=== PATIENT | male | born 1940 | race Caucasian/White ===

== ENCOUNTER → 2017-01-01 | Outpatient (CLI) | payer OTHER, MEDICARE ==
[~2017-01-01] MED LIST: ASCO1CAP3 PO; ASPI81TA28 PO; CALC500T72 PO; CALC600T9 PO; ENAL5TAB83 PO; GLC/500 PO; LEVO50TA6 PO; MULT-513 PO; NADO80TA PO; PRAV20TA PO; PRED10TA PO; PRT/20 PO; PYRI60TA2 PO; RXC5 PO; TAMS0.4C38 PO; TOLT2TAB9 PO; TRAM-10 PO
--- NOTE | 2017-01-01 15:27 | DIAGNOSTIC IMAGING REPORT ---
CHEST 2 VIEWS ROUTINE CLINICAL HISTORY: PRE OP, SEND TO [facility] preoperative evaluation COMPARISON STUDY: No previous studies for comparison. FINDINGS: Calcified pleural plaques right hemithorax. Lungs otherwise appear clear. Diaphragms are smooth. Degenerative changes thoracic spine. IMPRESSION: No acute process. Chronic changes as noted. Electronically signed by: Tayo Rios M.D. 01/01/2017 3:26 PM Dictated Date/Time: 01/01/2017 3:25 PM
== END | disposition home or self-care (01) ==
LOC: C.CPL 14:48
PROVIDERS: ATTEND Orthopaedic Surgery Orthopaedic Surgery of the Spine
DX: Z01.812 Encounter for preprocedural laboratory examination (principal); M48.06 Spinal stenosis, lumbar region

== ENCOUNTER → 2017-01-01 | Outpatient (CLI) | payer OTHER, MEDICARE ==
[~2017-01-01] VITALS: Ht 170.2 cm; Wt 77.3 kg
[~2017-01-01] MED LIST changes: +CEFAZOLIN 1000MG/55 ML D5W IV SCH; +LACTATED RINGER'S 1000ML 1,000 ML IV SCH
[2017-01-01 15:39] LABS: BASO % 0.3 %; BASO ABS # 0.02 K/uL (0-0.2); COMPLETE YES; EOS % 0.2 %; HEMATOCRIT 38.7 % (42-52); IG% 0.6 %; LYMPH % 8.7 %; LYMPH ABS # 0.58 K/uL (1.2-3.4); MEAN CELL VOLUME 90.4 fL (80-100); MEAN CORPUSCULAR HEMOGLOBIN 29.2 pg (25-34); MEAN CORPUSCULAR HGB CONC 32.3 g/dl (32-36); MEAN PLATELET VOLUME 9.3 fL (7.4-10.4); MONO % 2.4 %; NEUT % 87.8 %; PLATELET COUNT 201 K/uL (130-400); RED BLOOD COUNT 4.28 M/uL (4.7-6.1); WHITE BLOOD COUNT 6.63 K/uL (4.8-10.8)
[2017-01-01 15:43] LABS: URINE APPEARANCE CLOUDY (CLEAR); URINE BILIRUBIN NEG (NEG); URINE COLOR YELLOW; URINE NITRITE NEG (NEG); URINE PH 7.5 (4.5-7.5); URINE SPECIFIC GRAVITY 1.019 (1.000-1.030); UROBILINOGEN NEG (NEG)
[2017-01-01 15:47] LABS: MANUAL MICROSCOPIC REQUIRED? NO; REVIEW REQ? NO
[2017-01-01 15:48] LABS: SULFASALICYLIC ACID POS (NEG)
[2017-01-01 16:30] LABS: BLOOD UREA NITROGEN 15 mg/dl (7-18); BUN/CREATININE RATIO 22.1 (10-20); CARBON DIOXIDE 31 mmol/L (21-32); CHLORIDE 106 mmol/L (98-107); CREATININE 0.66 mg/dl (0.60-1.40); GLUCOSE 161 mg/dl (70-99); POTASSIUM 4.5 mmol/L (3.5-5.1); SODIUM 140 mmol/L (136-145)
[2017-01-04 13:39] VITALS: Ht 170.2 cm; Wt 77.3 kg
== END | disposition home or self-care (01) ==
LOC: C.LAB 08:00 → EDSTATUS 01-08 08:20
PROVIDERS: ATTEND Orthopaedic Surgery Orthopaedic Surgery of the Spine
DX: Z01.812 Encounter for preprocedural laboratory examination (principal)

== ENCOUNTER 2017-04-01 05:19 | Inpatient (IN) | payer OTHER, MEDICARE ==
[2017-03-21 13:10] VITALS: Ht 170.2 cm; Wt 79.9 kg
--- NOTE | 2017-03-21 13:48 | PAT Medication Instructions ---
Service Date Mar 21, 2017. Current Home Medication List Ascorbic Acid (Vitamin C), 500 MG PO QAM Aspirin (Aspirin Ec), 81 MG PO QAM Calcium Carbonate-Vitamin D (Calcium + D), 1 TAB PO BID Enalapril (Vasotec), 10 MG PO BID Levothyroxine Sodium (Levothyroxine Sodium), 1 TAB PO QAM Metformin Hcl (Glucophage), 500 MG PO BID Multivitamins/Minerals (Mvi With Minerals), 1 TAB PO QPM Nadolol (Corgard), 80 MG PO HS Pantoprazole (Protonix), 20 MG PO QAM Pravastatin (Pravachol ), 40 MG PO QPM Prednisone Tab (Prednisone), 5 MG PO Q2D Pyridostigmine [place] (Mestinon), 120 MG PO QID Tamsulosin Hcl (Flomax), 0.4 MG PO NOON Tolterodine Tartrate (Tolterodine Tartrate), 2 MG PO BID Medication Instructions For Your Scheduled Surgery - Hold the following medications 48 hours prior to surgery: Metformin Hcl (Glucophage), 500 MG PO BID - Hold the following medications 24 hours prior to surgery: Enalapril (Vasotec), 10 MG PO BID - Hold the following medications the morning of surgery: Calcium Carbonate-Vitamin D (Calcium + D), 1 TAB PO BID Ascorbic Acid (Vitamin C), 500 MG PO QAM - Take the following medications the morning of surgery with a sip of water OTHERWISE NOTHING TO EAT OR DRINK AFTER MIDNIGHT: Tolterodine Tartrate (Tolterodine Tartrate), 2 MG PO BID Levothyroxine Sodium (Levothyroxine Sodium), 1 TAB PO QAM Tamsulosin Hcl (Flomax), 0.4 MG PO NOON (time permitting) Aspirin (Aspirin Ec), 81 MG PO QAM Pantoprazole (Protonix), 20 MG PO QAM Pyridostigmine [place] (Mestinon), 120 MG PO QID - Take the following medications as scheduled the night before surgery: Tolterodine Tartrate (Tolterodine Tartrate), 2 MG PO BID Calcium Carbonate-Vitamin D (Calcium + D), 1 TAB PO BID Multivitamins/Minerals (Mvi With Minerals), 1 TAB PO QPM Nadolol (Corgard), 80 MG PO HS Pravastatin (Pravachol ), 40 MG PO QPM Pyridostigmine [place] (Mestinon), 120 MG PO QID If you have any questions please call us at [phone] or [phone] or [phone]
[2017-03-21 14:49] LABS: BASO % 0.9 %; BASO ABS # 0.04 K/uL (0-0.2); COMPLETE YES; EOS % 3.9 %; HEMATOCRIT 37.4 % (42-52); IG% 0.2 %; LYMPH % 20.3 %; LYMPH ABS # 0.89 K/uL (1.2-3.4); MEAN CELL VOLUME 89.3 fL (80-100); MEAN CORPUSCULAR HEMOGLOBIN 29.1 pg (25-34); MEAN CORPUSCULAR HGB CONC 32.6 g/dl (32-36); MEAN PLATELET VOLUME 9.4 fL (7.4-10.4); MONO % 11.4 %; NEUT % 63.3 %; PLATELET COUNT 168 K/uL (130-400); RED BLOOD COUNT 4.19 M/uL (4.7-6.1); WHITE BLOOD COUNT 4.39 K/uL (4.8-10.8)
[2017-03-21 14:50] LABS: URINE APPEARANCE CLEAR (CLEAR); URINE BILIRUBIN NEG (NEG); URINE COLOR YELLOW; URINE NITRITE NEG (NEG); URINE SPECIFIC GRAVITY 1.024 (1.000-1.030); UROBILINOGEN NEG (NEG)
[2017-03-21 14:53] LABS: MANUAL MICROSCOPIC REQUIRED? NO; REVIEW REQ? NO
[2017-03-21 15:08] LABS: BUN/CREATININE RATIO 18.2 (10-20); CALCIUM 9.1 mg/dl (8.5-10.1); CREATININE 0.73 mg/dl (0.60-1.40); POTASSIUM 4.2 mmol/L (3.5-5.1)
[~2017-04-01] VITALS: Ht 170.2 cm; Wt 79.9 kg
[2017-04-01] VITALS (10 sets, daily range): BP systolic 146–185; BP diastolic 62–80; PULSE 44–53; TEMP 36.4–36.9; O2SAT 98–100
[~2017-04-01 05:19] MED LIST changes: -CALC500T72 PO; -CEFAZOLIN 1000MG/55 ML D5W IV SCH; -LACTATED RINGER'S 1000ML 1,000 ML IV SCH; -RXC5 PO; -TRAM-10 PO
[2017-04-01] MEDS ORDERED: LACTATED RINGER'S 1000ML 1,000 ML IV SCH (06:00)
[2017-04-01] MEDS ORDERED: CEFAZOLIN 2000 MG/60 ML D5W IV SCH (06:00)
[2017-04-01] MEDS ORDERED: FENTANYL CITRATE INJ 50 MCG/1 ML 2 ML VIAL ONE ×3 (06:38→08:54)
[2017-04-01] MEDS ORDERED: MIDAZOLAM HCL 1 MG/ML 2ML VIAL ONE (06:38)
[2017-04-01] MEDS ORDERED: PYRIDOSTIGMINE BROMIDE 60 MG TAB PO STA (07:16)
[2017-04-01] MEDS ORDERED: BUPIVACAINE/EPINEPHRINE 0.5% MPF 1:200,000 10 ML VIAL ONE ×2 (07:17→07:18)
[2017-04-01] MEDS ORDERED: BACITRACIN 50000 UNIT VIAL ONE (07:17)
[2017-04-01] MEDS ORDERED: SODIUM CHLORIDE 0.9% PF 50 ML VIAL ONE (07:22)
--- NOTE | 2017-04-01 07:27 | History & Physical Bridge Note ---
H&P Re-Evaluation Bridge Note: I have examined the patient, reviewed the History & Physical and in the interval since the performance of the History & Physical I have noted the following changes of clinical significance: No changes noted
--- NOTE | 2017-04-01 07:28 | History and Physical ---
History & Physical Date Apr 01, 2017. Chief Complaint Back and leg pain History of Present Illness The patient is a 76 year old male with complaints of back and leg pain Additional History Hepatic Disease: No Endocrine Disorder: No Kidney Disease: No Hypertension: Yes Heart Disease: No Bleeding Tendencies: No Infectious Diseases: No Allergies Coded Allergies: No Known Drug Allergy (Verified Allergy, Unknown, NKDA, 04/01/17) Unclassified Drugs (Verified Allergy, Unknown, MINT-VOMITING, 04/01/17) Home Medications Scheduled Ascorbic Acid (Vitamin C), 500 MG PO QAM Aspirin (Aspirin Ec), 81 MG PO QAM Calcium Carbonate-Vitamin D (Calcium + D), 1 TAB PO BID Enalapril (Vasotec), 10 MG PO BID Levothyroxine Sodium (Levothyroxine Sodium), 1 TAB PO QAM Metformin Hcl (Glucophage), 500 MG PO BID Multivitamins/Minerals (Mvi With Minerals), 1 TAB PO QPM Nadolol (Corgard), 80 MG PO HS Pantoprazole (Protonix), 20 MG PO QAM Pravastatin (Pravachol ), 40 MG PO QPM Pyridostigmine [place] (Mestinon), 120 MG PO QID Tamsulosin Hcl (Flomax), 0.4 MG PO NOON Tolterodine Tartrate (Tolterodine Tartrate), 2 MG PO BID Physical Examination Skin: warm/dry Eyes: normal inspection, EOMI, sclerae normal ENT: normal ENT inspection, pharynx normal Head: normocephalic, atraumatic Neck: supple, no adenopathy, trachea midline Respiratory/Chest: lungs clear, normal breath sounds, no respiratory distress Cardiovascular: regular rate, rhythm, no edema, no murmur Abdomen / GI: normal bowel sounds, non tender Back: normal inspection Extremities: normal inspection, normal range of motion Neurologic/Psych: no motor/sensory deficits, alert, normal reflexes, oriented x 3 Diagnosis Lumbar spinal stenosis Plan of Treatment Lumbar decompression fusion L2 to L4
[2017-04-01] MEDS ORDERED: ONDANSETRON INJ 2 MG/ML 2 ML VIAL IV PRN ×2 (07:30→09:45)
[2017-04-01] MEDS ORDERED: NALOXONE HCL 0.4 MG/1 ML VIAL/CARP IV PRN ×3 (07:30→09:45)
[2017-04-01] MEDS ORDERED: ATROPINE SULFATE 0.1 MG/ML 5ML SYR IV PRN (07:30)
[2017-04-01] MEDS ORDERED: PHENYLEPHRINE 100MCG/ML 5ML SYR IV PRN (07:30)
[2017-04-01] MEDS ORDERED: MEPERIDINE HCL 25 MG/ML CARP IV PRN (07:30)
[2017-04-01] MEDS ORDERED: FLUMAZENIL 0.1 MG/1 ML 10 ML VIAL IV PRN (07:30)
[2017-04-01] MEDS ORDERED: FENTANYL CITRATE INJ 50 MCG/1 ML 2 ML VIAL IV PRN (07:30)
[2017-04-01] MEDS ORDERED: HYDROmorphone INJ 2 MG/ML SYR/VIAL IV PRN (07:30)
[2017-04-01] MEDS ORDERED: LABETALOL HCL IV 5 MG/ML 20ML IV PRN (07:30)
[2017-04-01] MEDS ORDERED: EpHEDrine SULFATE INJ 50 MG/ML AMP IV PRN (07:30)
[2017-04-01] MEDS ORDERED: HYDROmorphone INJ 2 MG/ML SYR/VIAL ONE ×2 (08:00→09:39)
[2017-04-01] MEDS ORDERED: ALBUMIN HUMAN 5% 12.5 GM/250 ML VIAL IV ONE (09:15)
[2017-04-01] MEDS ORDERED: FLOSEAL HEMOSTATIC MATRIX 10ML TOP ONE (09:31)
[2017-04-01] MEDS ORDERED: SODIUM CHLORIDE 0.9% 1000ML 1,000 ML IV SCH (09:33)
[2017-04-01] MEDS ORDERED: ONDANSETRON INJ 2 MG/ML 2 ML VIAL ONE (09:40)
[2017-04-01] MEDS ORDERED: DEXAMETHASONE SOD INJ 4 MG/ML VIAL ONE (09:40)
[2017-04-01] MEDS ORDERED: GLYCOPYRROLATE INJ 0.2 MG/ML VIAL ONE (09:40)
[2017-04-01] MEDS ORDERED: EpHEDrine SULFATE 50MG/5ML SYR ONE (09:40)
[2017-04-01] MEDS ORDERED: NEOSTIGMINE METHYLSULFATE 1 MG/ML 10ML VIAL ONE (09:40)
[2017-04-01] MEDS ORDERED: PROPOFOL IV EMULSION 10 MG/ML 20 ML VIAL IV ONE (09:40)
[2017-04-01] MEDS ORDERED: ROCURONIUM BROMIDE 10 MG/ML 5 ML VIAL ONE (09:40)
[2017-04-01] MEDS ORDERED: LIDOCAINE HCL 2% 2 ML VIAL (20MG/ML) ONE (09:40)
[2017-04-01] MEDS ORDERED: ACETAMINOPHEN IV 100 ML IV PRN (09:45)
[2017-04-01] MEDS ORDERED: LORAZEPAM INJ 0.5 MG in SYRINGE 0 ML IV PRN (09:45)
[2017-04-01] MEDS ORDERED: MAGNESIUM HYDROXIDE SUSP 30 ML UDC PO PRN (09:45)
[2017-04-01] MEDS ORDERED: METOCLOPRAMIDE HCL INJ 5 MG/ML 2 ML VIAL IV PRN (09:45)
[2017-04-01] MEDS ORDERED: FAMOTIDINE 20 MG TAB PO PRN (09:45)
[2017-04-01] MEDS ORDERED: ACETAMINOPHEN 500 MG TAB PO PRN (09:45)
[2017-04-01] MEDS ORDERED: ALUMINUM/MAGNESIUM SUSP 30 ML UDC PO PRN (09:45)
[2017-04-01] MEDS ORDERED: LORAZEPAM 0.5 MG TAB PO PRN (09:45)
[2017-04-01] MEDS ORDERED: DC PCA PRN (09:45)
[2017-04-01] MEDS ORDERED: BISACODYL 10 MG SUPP PR PRN (09:45)
[2017-04-01] MEDS ORDERED: DO NOT ADMINISTER FLU VACCINE PRN ×3 (09:45)
[2017-04-01] MEDS ORDERED: PROMETHAZINE HCL INJ 12.5 MG in SODIUM CHLORIDE 0.9% 50ML 50 ML IV PRN (09:45)
[2017-04-01] MEDS ORDERED: hydrOXYzine HCL 25 MG TAB PO PRN (09:45)
[2017-04-01] MEDS ORDERED: SOD PHOSPHATE/SOD BIPHOSPHATE ENEMA 132 ML BTL PR PRN (09:45)
[2017-04-01] MEDS ORDERED: DO NOT ADMINISTER PNEUMOCOCCAL VACCINE PRN ×2 (09:45)
--- NOTE | 2017-04-01 09:48 | [facility] Operative Report ---
Operative Report Operative Date Apr 01, 2017. Pre-Operative Diagnosis Lumbar Spinal Stenosis Post-Operative Diagnosis Lumbar Spinal Stenosis Procedure(s) Performed #1 removal of posterior inch rotation L4 5. #2 expiration of fusion L4 5. #3 lumbar decompression medial facetectomies foraminotomies L2 3 L3 4. #4 posterior spinal fusion L2 3 L3 4. #5 placement of posterior segmental instrumentation L2 to L5. 6 interbody fusion L3 4. #7 placement peek cage left by 22 mm at L3 4. #8 placement of locally harvested morcellized autograft in the posterior lateral gutters. #9 placement of infuse calm sponge, mask graft in the posterior lateral gutters Felicia bone graft in the interbody space. Surgeon Leona Sanitation Inspector Surgeon(s) Mehreen Garcia PA-C Estimated Blood Loss 700cc Findings Severe spinal stenosis Specimens A: Explanted Lumbar Hardware Description of Procedure Patient was met with preoperatively case discussed all questions are dressed with a point patient was taken back to the operative suite and after undergoing successful general intubation placed in a prone position on the Georgi table on top Jeremie frame. All bony promises well-padded eyes inspected to ensure no external pressure placed upon them. This point the lumbar spine was prepped and draped nostril fashion. Sharp dissection with the assistance of Bovie cautery performed onto an exposing the lamina and transverse processes of L2 L3 L4 instrumentation L4 5 level bilaterally. Then proceeded remove the hardware bilaterally explored the fusion mass noting it to be intact. Then performed a complete laminectomy of L3 into addressing severe lateral recess foraminal stenosis. Pedicle screws were then placed in L2-L3 L4-L5 bilaterally with assistance of fluoroscopy in the appropriately sized raza placed. Through a transforaminal approach on the right complete discectomy of L34 was performed and plate created to subcortical bleeding bone and a limb by 20 mm peek cage filled with Felicia bone graft tapped in position. The rods and locked and final position bilaterally. Transverse processes of L2 L3 L4 burred to subcortical bleeding bone. Infuse calm sponge mask graft locally harvested morcellized autograft placed in the posterior gutters. A 15 round AMIE drain inserted. Incision then closed with 1 Vicryl in the fascia 2-0 Vicryl subcutaneously for Monocryl for final skin closure. Steri-Strips and sterile dressing placed. Patient awakened taken to PACU stable condition. Please note Mehreen [place] present throughout the entire procedure involved in patient positioning complex portions of the procedure and final skin closure. I attest to the content of the Intraoperative Record and any orders documented therein. Any exceptions are noted below.
--- NOTE | 2017-04-01 09:51 | DIAGNOSTIC IMAGING REPORT ---
LUMBAR SPINE 2 OR 3 VIEW HISTORY: 76 years-old Male L2-L4 LAMI/DECOMPRESSION/FUSION/INTERBODY COMPARISON: Lumbar spine spot fluoroscopic images 10/07/2013 TECHNIQUE: Frontal and lateral spot fluoroscopic images of the lumbar spine were obtained utilizing 16.9 seconds of fluoroscopy time. A total of 2 images were submitted. FINDINGS/IMPRESSION: Posterior decompression with interbody raza and screw hardware seen extending from L2-L5. Disc spacers are seen at the L3-L4 and L4-L5 levels. Hardware appears intact and alignment is satisfactory. Please see operative report for further details. The above report was generated using voice recognition software. It may contain grammatical, syntax or spelling errors. Electronically signed by: Malachi Constantino M.D. 04/01/2017 9:50 AM Dictated Date/Time: 04/01/2017 9:47 AM
[2017-04-01] MEDS: HYDROmorphone HCL 0.5MG/ML 50 ML CASSETTE IV PRN ×4 (10:06→22:57)
--- NOTE | 2017-04-01 10:37 | Anesthesiology Progress Note ---
Anesthesia Post Op Note Date & Time Apr 01, 2017 at 10:36 Vital Signs Pain Intensity: 0 Vital Signs Past 12 Hours Date Time Temp Pulse Resp B/P (MAP) Pulse Ox O2 Delivery O2 Flow Rate FiO2 04/01/17 10:20 50 16 167/75 99 Nasal Cannula 4 04/01/17 10:10 52 16 171/66 99 Mask 10 04/01/17 10:00 59 16 170/67 98 Mask 10 04/01/17 09:52 36.4 74 16 174/71 98 Mask 10 04/01/17 06:07 36.6 49 20 185/66 99 Room Air Notes Mental Status: alert / awake / arousable, participated in evaluation Pt Amnestic to Procedure: Yes Nausea / Vomiting: adequately controlled Pain: adequately controlled Airway Patency, RR, SpO2: stable & adequate BP & HR: stable & adequate Hydration State: stable & adequate Anesthetic Complications: no major complications apparent The patient did well. He is awake and comfortable in the PACU. I spoke to Giuliana Carlos about the patient's myasthenia gravis. She will follow the patient on the floor.
[2017-04-01] MEDS: SODIUM CHLORIDE 0.9% 1000ML 1,000 ML IV SCH ×3 (11:19→22:44)
[2017-04-01] MEDS ORDERED: ENALAPRIL MALEATE 10 MG TAB PO ONE (11:45)
[2017-04-01] MEDS ORDERED: GLUCOSE 10 TABS/TUBE PO PRN (12:15)
[2017-04-01] MEDS ORDERED: DEXTROSE 50% 50 ML SYR IV PRN (12:15)
[2017-04-01] MEDS ORDERED: GLUCAGON FOR INJ 1 MG VIAL SQ PRN (12:15)
[2017-04-01] MEDS ORDERED: GLUCOSE 40% GEL 15 GM TUBE PO PRN (12:15)
--- NOTE | 2017-04-01 12:36 | Medical Consult ---
Consultation Date of Consultation: Apr 01, 2017. Attending Physician: Jamal Delgadillo D.O. Reason for Consultation: Post Op Medical Management History of Present Illness 76 year old male who is s/p L2-4 decompression / fusion today by Dr. Delgadillo. Patient has been having increasing back pain with radiation into the right hip and thigh. He failed outpatient conservative measures and therefore presented for the planned procedure today. Post operatively the patient is doing well. He reports his pain is well controlled. He denies numbness or tingling to the BLLE. No chest pain or shortness of breath. He denies headache and blurred vision. No abdominal pain or nausea. Past Medical/Surgical History Medical Problems: (1) BPH (benign prostatic hyperplasia) Status: Chronic (2) Dilated aortic root Permanent Comment: 3.9cm on echo 12/2016 Status: Chronic (3) DM (diabetes mellitus) Status: Chronic (4) GERD (gastroesophageal reflux disease) Status: Chronic (5) HLD (hyperlipidemia) Status: Chronic (6) HTN (hypertension) Status: Chronic (7) Hypothyroidism Status: Chronic (8) Myasthenia gravis Status: Chronic Surgical Problems: (1) History of back surgery Status: Chronic Social History Smoking Status: Former Smoker Alcohol Use: none Allergies Coded Allergies: No Known Drug Allergy (Verified Allergy, Unknown, NKDA, 04/01/17) Unclassified Drugs (Verified Allergy, Unknown, MINT-VOMITING, 04/01/17) Home Medications Vitamin C (Ascorbic Acid) 500 Mg Cap 500 Mg PO QAM Mestinon (Pyridostigmine [place]) 60 Mg Tab 120 Mg PO QID Calcium + D (Calcium Carbonate-Vitamin D) 1 Tab Tab 1 Tab PO BID Protonix (Pantoprazole Sodium) 20 Mg Tab 20 Mg PO QAM Tolterodine Tartrate 2 Mg Tab 2 Mg PO BID Levothyroxine Sodium 50 Mcg Tab 1 Tab PO QAM 90 Days Flomax (Tamsulosin Hcl) 0.4 Mg Cap 0.4 Mg PO NOON Corgard (Nadolol) 80 Mg Tab 80 Mg PO HS Vasotec (Enalapril Maleate) 5 Mg Tab 10 Mg PO BID Mvi With Minerals (Multivitamins/Minerals) Tab 1 Tab PO QPM Glucophage (Metformin Hcl) 500 Mg Tab 500 Mg PO BID Aspirin Ec (Aspirin) 81 Mg Tab 81 Mg PO QAM Pravachol (Pravastatin Sodium) 20 Mg Tab 40 Mg PO QPM Current Inpatient Medications Current Inpatient Medications Medications (Trade) Dose Ordered Sig/Get Route Start Time Stop Time Status Last Admin Dose Admin Cefazolin Sodium 60 ml @ 100 mls/hr PREOP IV 04/01/17 06:00 04/01/17 15:59 04/01/17 07:34 100 MLS/HR Lactated Ringer's 1,000 ml @ 15 mls/hr Q24H IV 04/01/17 06:00 04/02/17 05:59 04/01/17 06:25 15 MLS/HR Hydromorphone HCl (Dilaudid Inj) 0.5 mg Q5M PRN IV 04/01/17 07:30 04/01/17 13:00 Fentanyl Citrate (Fentanyl Inj) 25 mcg Q5M PRN IV 04/01/17 07:30 04/01/17 13:00 Naloxone HCl (Narcan Inj) 0.2 mg Q2M PRN IV 04/01/17 07:30 04/01/17 13:00 Meperidine HCl (Demerol Inj) 12.5 mg Q5M PRN IV 04/01/17 07:30 04/01/17 13:00 Ondansetron HCl (Zofran Inj) 4 mg ONE PRN IV 04/01/17 07:30 04/01/17 13:00 Flumazenil (Romazicon Inj) 0.2 mg Q2M PRN IV 04/01/17 07:30 04/01/17 13:00 Labetalol HCl (Normodyne IV) 5 mg Q5M PRN IV 04/01/17 07:30 04/01/17 13:00 Ephedrine Sulfate (EpHEDrine SULFATE INJ) 5 mg Q5M PRN IV 04/01/17 07:30 04/01/17 13:00 Atropine Sulfate (Atropine Sulfate 0.1MG/Ml Inj) 0.5 mg Q1M PRN IV 04/01/17 07:30 04/01/17 13:00 Phenylephrine HCl (Fuentes-Synephrine 500MCG/5ML Syr) 100 mcg Q5M PRN IV 04/01/17 07:30 04/01/17 13:00 Dexamethasone Sodium Phosphate 6 mg/Syringe 1.5 ml @ 1 mls/min Q8H IV 04/01/17 14:00 04/02/17 06:02 Promethazine HCl 12.5 mg/Sodium Chloride 50.5 ml @ 202 mls/hr Q6H PRN IV 04/01/17 09:45 05/01/17 09:44 Ondansetron HCl (Zofran Inj) 4 mg Q6H PRN IV 04/01/17 09:45 05/01/17 09:44 Metoclopramide HCl (Reglan Inj) 10 mg Q6H PRN IV 04/01/17 09:45 05/01/17 09:44 Lorazepam (Ativan Tab) 0.5 mg Q8H PRN PO 04/01/17 09:45 05/01/17 09:44 Lorazepam 0.5 mg/ Syringe 0.25 ml @ 1 mls/min Q8H PRN IV 04/01/17 09:45 05/01/17 09:44 Pneumococcal Polysaccharide Vaccine 1 ea PRN PRN N/A 04/01/17 09:45 05/01/17 09:44 Influenza Virus Vacc Triv Types A&B 1 ea PRN PRN N/A 04/01/17 09:45 05/01/17 09:44 Polyethylene (Miralax Powder Packet) 17 gm Q6 PO 04/03/17 06:00 05/03/17 05:59 Bisacodyl (Dulcolax Supp) 10 mg DAILY PRN AK 04/01/17 09:45 05/01/17 09:44 Magnesium Hydroxide (Milk Of Magnesia Susp) 30 ml DAILY PRN PO 04/01/17 09:45 05/01/17 09:44 Hydromorphone HCl (Dilaudid Inj) 0.5-1mg prn moder... Q3H PRN IV 04/02/17 06:00 04/16/17 05:59 Oxycodone HCl (Roxicodone Immediate Rel Tab) 5-10mg prn moderate to sev... Q4H PRN PO 04/02/17 06:00 04/16/17 05:59 Cefazolin Sodium 2000 mg/Dextrose 60 ml @ 100 mls/hr Q8H IV 04/01/17 16:00 04/02/17 00:35 Sodium Chloride 1,000 ml @ 150 mls/hr Q6H40M IV 04/01/17 09:33 05/01/17 09:32 04/01/17 11:19 150 MLS/HR Acetaminophen (Tylenol Tab) 1,000 mg Q8H PRN PO 04/01/17 09:45 05/01/17 09:44 Acetaminophen 100 ml @ 400 mls/hr Q8H PRN IV 04/01/17 09:45 05/01/17 09:44 Naloxone HCl (Narcan Inj) 0.1 mg Q5M PRN IV 04/01/17 09:45 05/01/17 09:44 Senna/Docusate Sodium (Senokot S Tab) 2 tab HS PO 04/01/17 21:00 05/01/17 20:59 Sodium Biphosphate/ Sodium Phosphate (Fleet Enema) 132 ml ONE PRN AK 04/01/17 09:45 05/01/17 09:44 Hydroxyzine HCl (Vistaril Tab) 25 mg Q8H PRN PO 04/01/17 09:45 05/01/17 09:44 Al Hydroxide/Mg Hydroxide (Maalox Susp) 30 ml Q6H PRN PO 04/01/17 09:45 05/01/17 09:44 Famotidine (Pepcid Tab) 20 mg Q12 PRN PO 04/01/17 09:45 05/01/17 09:44 Diphenhydramine HCl (Benadryl Cap) 25 mg Q6H PRN PO 04/01/17 09:45 05/01/17 09:44 Miscellaneous Information (Discontinue HEAD GOLF PROFESSIONAL) 1 ea DIRECTED PRN N/A 04/01/17 09:45 04/02/17 06:00 Naloxone HCl (Narcan Inj) 0.1 mg Q5M PRN IV 04/01/17 09:45 04/02/17 06:00 Hydromorphone HCl (Dilaudid [place]) 25 mg PRN PRN IV 04/01/17 09:45 04/02/17 06:00 04/01/17 10:56 25 MG Sodium Chloride 1,000 ml @ 15 mls/hr Q24H IV 04/01/17 09:33 04/02/17 06:00 Aspirin (Ecotrin Tab) 81 mg QAM PO 04/02/17 09:00 05/02/17 08:59 Enalapril Maleate (Vasotec Tab) 10 mg BID PO 04/01/17 21:00 05/01/17 20:59 Levothyroxine Sodium (Synthroid Tab) 50 mcg QAM PO 04/02/17 09:00 05/02/17 08:59 Nadolol (Corgard Tab) 80 mg HS PO 04/01/17 21:00 05/01/17 20:59 Pravastatin Sodium (Pravachol Tab) 40 mg QPM PO 04/01/17 21:00 05/01/17 20:59 Tamsulosin HCl (Flomax Cap) 0.4 mg DAILY PO 04/02/17 09:00 05/02/17 08:59 Tolterodine Tartrate (Detrol Tab) 2 mg BID PO 04/01/17 21:00 05/01/17 20:59 Pantoprazole Sodium (Protonix Tab) 40 mg QAM PO 04/02/17 09:00 05/02/17 08:59 Pyridostigmine [place] (Mestinon Tab) 120 mg QID@0300,0900,1500,2100 PO 04/01/17 15:00 05/01/17 14:59 Insulin Aspart (novoLOG ASPART) SLIDING SCALE If C... ACHS SC 04/01/17 17:15 05/01/17 17:14 UNV Glucose (Glucose 40% Gel) 15-30 GRAMS 15 GRAMS... UD PRN PO 04/01/17 12:15 05/01/17 12:14 UNV Glucose (Glucose Chew Tab) 4-8 Tablets 4 Tabl... UD PRN PO 04/01/17 12:15 05/01/17 12:14 UNV Dextrose (Dextrose 50% 50ML Syringe) 25-50ML OF 50% DW IV FOR... UD PRN IV 04/01/17 12:15 05/01/17 12:14 UNV Glucagon (Glucagon Inj) 1 mg UD PRN SQ 04/01/17 12:15 05/01/17 12:14 UNV Insulin Glargine (Lantus Solostar Pen) 5 units HS SC 04/01/17 21:00 05/01/17 20:59 UNV Review of Systems ROS per HPI, all other systems reviewed and negative Physical Exam Date Time Temp Pulse Resp B/P (MAP) Pulse Ox O2 Delivery O2 Flow Rate FiO2 04/01/17 12:00 48 16 157/65 (95) 100 Nasal Cannula 2.0 04/01/17 11:37 36.9 46 16 151/66 (94) 100 Nasal Cannula 4.0 04/01/17 11:00 36.4 44 18 176/80 (112) 100 Nasal Cannula 4.0 04/01/17 11:00 100 Nasal Cannula 4.0 04/01/17 11:00 100 Nasal Cannula 4.0 04/01/17 10:40 36.2 46 16 172/60 100 Nasal Cannula 4 04/01/17 10:30 36.2 47 16 170/64 100 Nasal Cannula 4 04/01/17 10:20 50 16 167/75 99 Nasal Cannula 4 04/01/17 10:10 52 16 171/66 99 Mask 10 04/01/17 10:00 59 16 170/67 98 Mask 10 04/01/17 09:52 36.4 74 16 174/71 98 Mask 10 04/01/17 06:07 36.6 49 20 185/66 99 Room Air General Appearance: no apparent distress Head: normocephalic Eyes: normal inspection ENT: hearing grossly normal Neck: supple, no JVD Respiratory/Chest: lungs clear, normal breath sounds, no respiratory distress Cardiovascular: regular rate, rhythm, no edema, normal peripheral pulses Abdomen/GI: normal bowel sounds, non tender, soft, + distended Back: + pertinent finding (s/p back surgery, drain in place draining bloody drainage, pedal pushes and pulls strong BL) Extremities/Musculoskelatal: normal inspection, no calf tenderness Neurologic/Psych: no motor/sensory deficits, alert, normal mood/affect, oriented x 3 Skin: normal color, warm/dry Laboratory Results Last 24 Hours Test 04/01/17 06:04 04/01/17 10:04 04/01/17 12:09 Bedside Glucose 147 mg/dl 159 mg/dl 189 mg/dl Assessment & Plan S/P L2-4 DECOMPRESSION FUSION - POD#0 - activity and wound care orders as per ortho - pain control with bowel regimen - PT/OT - monitor H/H for acute blood loss anemia and transfuse blood products PRN - EBL 700ml HTN - BP mildly elevated - patient did not take AM Enalapril so will give AM dose now and re-evaluate, provide PRN hydralazine if needed - also on Nadolol, noted mildly bradycardia which seems to be chronic per review of old records DM - controlled on Metformin - will utilize Lantus / Novolog while hospitalized MYASTHENIA GRAVIS - stable - continue pyridostigmine HYPOTHYROIDISM - continue levothyroxine HLD - continue statin GERD - continue PPI BPH - continue tamsulosin DVT PROPHYLAXIS - deferred to ortho Thank you for this consultation. We will follow the patient with you during their hospital stay. You can reach a member of the [facility]ist Team 18/03 via pager @ . Attending Addendum: Agree with the above Consultation H&P; please refer to above for more details. Patient is a 76 yo male who underwent scheduled lumbar decompression surgery today for spinal stenosis that was causing his pain in his back and leg and affecting his daily living. He denies any complaints at the time and states he is still numb from surgery. Denies any CP or SOB. Cardiac: RR, S1 and S2 auscultated Resp: CTA B/L GI: soft, NT, ND, +BS Postoperative: s/p lumbar decompression/fusion surgery -pain control, DVT prophylaxis, activity as per primary team DM Type II: -hold oral anti-glycemic meds -place on lantus + correction scale insulin -monitor closely as patient is on steroids x3 doses which will impact BSGs
[2017-04-01] MEDS: DEXAMETHASONE INJ 6 MG in SYRINGE 0 ML IV SCH ×2 (13:58→22:44)
[2017-04-01] MEDS: PYRIDOSTIGMINE BROMIDE 60 MG TAB PO SCH ×2 (14:34→21:18)
[2017-04-01] MEDS: CEFAZOLIN IV 2,000 MG in DEXTROSE 5% 50ML 50 ML IV SCH ×2 (15:44→23:27)
[2017-04-01] MEDS ORDERED: PYRIDOSTIGMINE BROMIDE 60 MG TAB PO SCH (17:00)
[2017-04-01] MEDS: INSULIN ASPART 100 UNITS/ML 3 ML PEN SC SCH ×2 (18:30→21:15)
[2017-04-01] MEDS: ENALAPRIL MALEATE 5 MG TAB PO SCH (21:16)
[2017-04-01] MEDS: INSULIN GLARGINE SOLOSTAR 100 UNITS/ML 3 ML PEN SC SCH (21:16)
[2017-04-01] MEDS: TOLTERODINE TARTRATE 2 MG TAB PO SCH (21:17)
[2017-04-01] MEDS: NADOLOL 40 MG TAB PO SCH (21:18)
[2017-04-01] MEDS: DOCUSATE SODIUM/SENNA 50/8.6MG TAB PO SCH (21:19)
[2017-04-01] MEDS: PRAVASTATIN SOD 20 MG TAB PO SCH (21:19)
[2017-04-02] VITALS (8 sets, daily range): BP systolic 146–178; BP diastolic 51–70; PULSE 50–58; TEMP 36.6–36.8; O2SAT 92–100
[2017-04-02] MEDS: PYRIDOSTIGMINE BROMIDE 60 MG TAB PO SCH ×4 (03:30→21:02)
[2017-04-02] MEDS ORDERED: NURSING VERBAL MED ORDER ONE ×2 (05:30→15:45)
[2017-04-02] MEDS: DEXAMETHASONE INJ 6 MG in SYRINGE 0 ML IV SCH (05:44)
[2017-04-02] MEDS ORDERED: OXYCODONE HCL IR 5 MG TAB (IMMEDIATE RELEASE) PO PRN (06:00)
[2017-04-02] MEDS ORDERED: HYDROmorphone INJ 0.5 MG/0.5 ML SYR IV PRN (06:00)
[2017-04-02 06:34] LABS: HEMATOCRIT 25.2 % (42-52); IG% 0.4 %; LYMPH % 6.2 %; LYMPH ABS # 0.56 K/uL (1.2-3.4); MEAN CELL VOLUME 87.8 fL (80-100); MEAN CORPUSCULAR HGB CONC 34.1 g/dl (32-36); MEAN PLATELET VOLUME 9.7 fL (7.4-10.4); NEUT % 86.4 %; PLATELET COUNT 127 K/uL (130-400); RED BLOOD COUNT 2.87 M/uL (4.7-6.1); WHITE BLOOD COUNT 8.98 K/uL (4.8-10.8)
[2017-04-02 07:03] LABS: BUN/CREATININE RATIO 13.5 (10-20); CREATININE 0.65 mg/dl (0.60-1.40); POTASSIUM 3.9 mmol/L (3.5-5.1)
[2017-04-02 07:06] LABS: COMPLETE YES
[2017-04-02] MEDS: TOLTERODINE TARTRATE 2 MG TAB PO SCH ×2 (08:31→21:02)
[2017-04-02] MEDS: ASPIRIN 81 MG ECTAB PO SCH (08:32)
[2017-04-02] MEDS: TAMSULOSIN HCL 0.4 MG CAP PO SCH (08:32)
[2017-04-02] MEDS: PANTOprazole SOD 40 MG TAB PO SCH (08:32)
[2017-04-02] MEDS: ENALAPRIL MALEATE 5 MG TAB PO SCH ×2 (08:33→21:03)
[2017-04-02] MEDS: INSULIN ASPART 100 UNITS/ML 3 ML PEN SC SCH ×4 (08:41→21:06)
[2017-04-02] MEDS ORDERED: LEVOTHYROXINE 50 MCG TAB PO SCH (09:00)
[2017-04-02] MEDS ORDERED: RXC5 PO (09:41)
--- NOTE | 2017-04-02 09:42 | Discharge Instructions ---
Discharge Instructions Date of Service Apr 02, 2017. Admission Reason for Admission: Lumbar Spinal Stenosis Discharge Discharge Diagnosis / Problem: lumbar stenosis Discharge Goals Goal(s): Improve function Activity Recommendations Activity Limitations: per Instructions/Follow-up section . Instructions / Follow-Up Instructions / Follow-Up ACTIVITY RECOMMENDATIONS: SELF CARE INSTRUCTIONS AFTER THORACIC/LUMBAR FUSIONS 1. You may walk to your tolerance. It is good exercise for your legs and back. Expect some back and intermittent leg aches and pains. 2. You may perform "counter-top" level activities (make a sandwich, inez with a project, etc.). 3. No bending or lifting of more than 10 pounds or back twisting of any nature (roll like a log when turning in bed). 4. You may ride in a car for 20-30 minutes at a time. No driving until after your first visit with your doctor. 5. Frequent changes of position and restricting sitting to 30 minutes at a time will help limit the amount of back spasms and stiffness you may experience. 6. You may discontinue the use of ambulatory aids (cane, crutches, etc.) once your strength and confidence allow. 7. You may production mechanic tin cans the shower and let water strike your incision when you arrive home at least once daily. Do not take a tub bath, sit in a hot tub or go into a swimming pool until after your first recheck in the office. SPECIAL CARE INSTRUCTIONS: VERY IMPORTANT TO READ AND REVIEW A. Your surgical incision has been closed with a cosmetic suture under the skin that will dissolve in about 6 weeks. In 14 days, you can use a pair of clean scissors and cut the suture that is left outside of the skin at the ends of your incision. 1. The small skin tapes can be removed 7 days after surgery if they have not fallen off by that point. 2. You may keep the wound open to air as much as possible to promote healing after post-op day number 5 unless told otherwise by your doctor. 3. If you think the wound looks like it is becoming infected (redness or worsening drainage) and/or you are experiencing fever, chill or worsening back pain and muscle spasms, contact the office so that we may evaluate you as soon as possible. B. Complications are uncommon, but please contact us if you have any signs or symptoms of: 1. wound infection (fever higher than 102.5 degrees F, redness, separation of wound, drainage, or increasing pain from the incision) 2. blood clots in legs (pain, swelling, redness and warmth in legs) 3. urinary tract infection (fever higher than 102.5 degrees F, burning upon urination or increased frequency of urination) 4. nerve problems (inability to walk on your toes or heels, numbness, loss of bowel or bladder control) 5. any other symptoms that concern you C. Please call the office at if you have any concerns or questions about your operation or recovery. D. No smoking! Smoking drastically decreases the chance of a solid fusion. E. Do not take any anti-inflammatory medications (Indocin, Advil, Motrin, Aspirin, Naprosyn, etc.) as these may inhibit the chance of a solid fusion. Tylenol is okay to take for pain. MANAGING PAIN AFTER SPINAL SURGERY 1. Narcotic medication is intended for short-term use and will be provided for surgical pain. Surgical pain usually lasts for a period of 4-6 weeks. Narcotic medication includes Percocet, Vicodin, Darvocet, Tylenol #3 or Lortab. 2. Longer-term pain is more appropriately treated with non-narcotic medication such as Tylenol ES. 3. Muscle spasm is not appropriately treated with narcotics. Muscle relaxers such as Soma, Flexeril or Skelaxin can be used along with Tylenol ES. 4. Remember that we all live with some "aches and pains". This is not unusual or uncommon after an injury or as we get older. a. Back pain is expected and may include muscle spasms for 4 to 6 weeks after surgery. The pain should gradually improve. If the pain worsens for no apparent reason, please contact the office. b. Intermittent leg pain may also be experienced and should not be concerned about unless it worsens for no apparent reason. If so, please contact the office. 5. We will provide appropriate medication within the normal guidelines of their prescribed use. We will also be very cautious and aware of potential abuse and extended duration of patients' medication needs. a. Pain medications are for your comfort and to assist with sleep and rest so that the tissue can heal. They are not provided in order to return to normal activity and should not be used through the day. To do so or worsening pain at night can result from ongoing tissue damage and development of tolerance to the prescribed medicine. 6. Please allow 2-3 days to process refills. Prescriptions will not be mailed but must be picked up at the office. FOLLOW UP VISIT: Keep your scheduled follow-up appointment. Any questions, please call the office at . Current Hospital Diet Patient's current hospital diet: Diabetes Type 2 Diet Discharge Diet Recommended Diet: Regular Diet Procedures Procedures Performed: #1 removal of posterior inch rotation L4 5. #2 expiration of fusion L4 5. #3 lumbar decompression medial facetectomies foraminotomies L2 3 L3 4. #4 posterior spinal fusion L2 3 L3 4. #5 placement of posterior segmental instrumentation L2 to L5. 6 interbody fusion L3 4. #7 placement peek cage left by 22 mm at L3 4. #8 placement of locally harvested morcellized autograft in the posterior lateral gutters. #9 placement of infuse calm sponge, mask graft in the posterior lateral gutters Felicia bone graft in the interbody space. Pending Studies Studies pending at discharge: no Medical Emergencies . Who to Call and When: Medical Emergencies: If at any time you feel your situation is an emergency, please call 911 immediately. . Non-Emergent Contact Non-Emergency issues call your: Primary Care Provider . "Provider Documentation" section prepared by Jamal Delgadillo. . VTE Core Measure Inpt VTE Proph given/why not?: Shirin Childers, SCD's
--- NOTE | 2017-04-02 09:44 | Progress Note ---
Progress Note Date of Service Apr 02, 2017. Progress Note Patient's back pain is well-controlled. Leg symptoms markedly improved. Vital signs are stable. On exam he is standing and ambulating bathroom excellent posture and gait. Good strength testing. Assessment status post lumbar decompression fusion. Planned this time will continue physical therapy advance his bowel regimen anticipate home the next few days with home health.
--- NOTE | 2017-04-02 10:44 | Anesthesiology Progress Note ---
Anesthesia Post Op Note Date & Time Apr 02, 2017 at 10:43 Vital Signs Pain Intensity: 2.0 Vital Signs Past 12 Hours Date Time Temp Pulse Resp B/P (MAP) Pulse Ox O2 Delivery O2 Flow Rate FiO2 04/02/17 08:01 99 Room Air 04/02/17 08:00 36.6 50 12 178/62 (100) 99 Room Air 04/02/17 07:51 Room Air 04/02/17 03:15 36.8 52 18 166/70 (102) 99 Room Air 04/01/17 23:30 Room Air 04/01/17 23:25 50 04/01/17 23:20 36.6 45 16 158/73 (101) 98 Room Air Notes Mental Status: alert / awake / arousable, participated in evaluation Pt Amnestic to Procedure: Yes Nausea / Vomiting: adequately controlled Pain: adequately controlled Airway Patency, RR, SpO2: stable & adequate BP & HR: stable & adequate Hydration State: stable & adequate Anesthetic Complications: no major complications apparent
--- NOTE | 2017-04-02 19:11 | Progress Note ---
Internal Med Progress Note Date of Service: Apr 02, 2017. Provider Documentation: SUBJECTIVE: resting comfortably afebrile ambulating ok no chest pain or sob no nausea OBJECTIVE: Vital Signs-as noted below Exam: General-alert and oriented. Not in distress ENT-Normal hearing Neck-no neck masses supple Lungs-cta b/l no wheezing no crackles present Heart-s1 and s2 heard regular rate and rhythm no murmurs Abdomen-soft bowel sounds present non tender no distension Extremities- no edema no erythema Musculoskeletal s/p back surgery Neuro-alert and oriented moves extremities Lab data as noted below. ASSESSMENT & PLAN: S/P L2-4 DECOMPRESSION FUSION - POD#1 management as per ortho. HTN home meds will monitor DM holding Metformin on Lantus / Novolog while hospitalized will monitor MYASTHENIA GRAVIS stable on pyridostigmine HYPOTHYROIDISM on levothyroxine HLD on statin GERD on PPI BPH on tamsulosin DVT PROPHYLAXIS as per ortho DISPOSITION as per ortho Vital Signs: Date Time Temp Pulse Resp B/P (MAP) Pulse Ox O2 Delivery O2 Flow Rate FiO2 04/02/17 17:06 162/51 (88) 04/02/17 16:05 36.6 55 18 153/52 (85) 97 Room Air 04/02/17 16:00 Room Air 04/02/17 11:53 36.6 54 16 154/52 (86) 97 Room Air 04/02/17 09:13 54 100 04/02/17 08:01 99 Room Air 04/02/17 08:00 36.6 50 12 178/62 (100) 99 Room Air 04/02/17 07:51 Room Air 04/02/17 03:15 36.8 52 18 166/70 (102) 99 Room Air 04/01/17 23:30 Room Air 04/01/17 23:25 50 04/01/17 23:20 36.6 45 16 158/73 (101) 98 Room Air 04/01/17 19:12 36.6 50 18 164/69 (100) 99 Room Air Lab Results: Results Past 24 Hours Test 04/01/17 20:54 04/02/17 06:04 04/02/17 08:27 04/02/17 11:50 Range/Units Bedside Glucose 230 239 288 70-99 mg/dl White Blood Count 8.98 4.8-10.8 K/uL Red Blood Count 2.87 4.7-6.1 M/uL Hemoglobin 8.6 14.0-18.0 g/dL Hematocrit 25.2 42-52 % Mean Corpuscular Volume 87.8 80-100 fL Mean Corpuscular Hemoglobin 30.0 25-34 pg Mean Corpuscular Hemoglobin Concent 34.1 32-36 g/dl Platelet Count 127 130-400 K/uL Mean Platelet Volume 9.7 7.4-10.4 fL Neutrophils (%) (Auto) 86.4 % Lymphocytes (%) (Auto) 6.2 % Monocytes (%) (Auto) 7.0 % Eosinophils (%) (Auto) 0.0 % Basophils (%) (Auto) 0.0 % Neutrophils # (Auto) 7.75 1.4-6.5 K/uL Lymphocytes # (Auto) 0.56 1.2-3.4 K/uL Monocytes # (Auto) 0.63 0.11-0.59 K/uL Eosinophils # (Auto) 0.00 0-0.5 K/uL Basophils # (Auto) 0.00 0-0.2 K/uL RDW Standard Deviation 42.0 36.4-46.3 fL RDW Coefficient of Variation 13.0 11.5-14.5 % Immature Granulocyte % (Auto) 0.4 % Immature Granulocyte # (Auto) 0.04 0.00-0.02 K/uL Red Blood Cell Morphology Unremarkable Sodium Level 142 136-145 mmol/L Potassium Level 3.9 3.5-5.1 mmol/L Chloride Level 111 98-107 mmol/L Carbon Dioxide Level 26 21-32 mmol/L Anion Gap 5.0 3-11 mmol/L Blood Urea Nitrogen 9 7-18 mg/dl Creatinine 0.65 0.60-1.40 mg/dl Est Creatinine Clear Calc Drug Dose 94.9 ml/min Estimated GFR () 108.0 Estimated GFR (Non- 93.2 BUN/Creatinine Ratio 13.5 10-20 Random Glucose 196 70-99 mg/dl Calcium Level 8.0 8.5-10.1 mg/dl Test 04/02/17 17:09 Range/Units Bedside Glucose 240 70-99 mg/dl
[2017-04-02] MEDS: PRAVASTATIN SOD 20 MG TAB PO SCH (21:01)
[2017-04-02] MEDS: DOCUSATE SODIUM/SENNA 50/8.6MG TAB PO SCH (21:02)
[2017-04-02] MEDS: NADOLOL 40 MG TAB PO SCH (21:03)
[2017-04-02] MEDS: INSULIN GLARGINE SOLOSTAR 100 UNITS/ML 3 ML PEN SC SCH (21:05)
[2017-04-03] MEDS: PYRIDOSTIGMINE BROMIDE 60 MG TAB PO SCH ×4 (03:07→21:06)
[2017-04-03] MEDS: POLYETHYLENE (MIRALAX) 17 GM PACK PO SCH ×3 (05:36→19:50)
[2017-04-03] MEDS: LEVOTHYROXINE 50 MCG TAB PO SCH (05:36)
[2017-04-03 06:13] LABS: BASO % 0.1 %; BASO ABS # 0.01 K/uL (0-0.2); EOS % 0.3 %; HEMATOCRIT 26.9 % (42-52); IG% 0.5 %; LYMPH ABS # 0.96 K/uL (1.2-3.4); MEAN CELL VOLUME 88.5 fL (80-100); MEAN CORPUSCULAR HEMOGLOBIN 28.3 pg (25-34); MEAN PLATELET VOLUME 9.2 fL (7.4-10.4); MONO % 11.9 %; NEUT % 78.2 %; PLATELET COUNT 142 K/uL (130-400); RED BLOOD COUNT 3.04 M/uL (4.7-6.1)
[2017-04-03 06:48] LABS: CALCIUM 8.1 mg/dl (8.5-10.1); CREATININE 0.73 mg/dl (0.60-1.40); MAGNESIUM 2.1 mg/dl (1.8-2.4); POTASSIUM 3.5 mmol/L (3.5-5.1)
[2017-04-03 06:56] LABS: COMPLETE YES
[2017-04-03 07:37] VITALS: BP 138/84; PULSE 52; TEMP 36.7; O2SAT 100
[2017-04-03 07:38] VITALS: O2SAT 100
[2017-04-03] MEDS: TOLTERODINE TARTRATE 2 MG TAB PO SCH ×2 (08:28→21:05)
[2017-04-03] MEDS: ASPIRIN 81 MG ECTAB PO SCH (08:29)
[2017-04-03] MEDS: TAMSULOSIN HCL 0.4 MG CAP PO SCH (08:30)
[2017-04-03] MEDS: PANTOprazole SOD 40 MG TAB PO SCH (08:31)
[2017-04-03] MEDS: ENALAPRIL MALEATE 5 MG TAB PO SCH ×2 (08:32→21:05)
[2017-04-03] MEDS: INSULIN ASPART 100 UNITS/ML 3 ML PEN SC SCH ×4 (09:20→21:17)
[2017-04-03 11:38] VITALS: BP 130/78; PULSE 54; TEMP 36.8; O2SAT 100
--- NOTE | 2017-04-03 13:16 | Progress Note ---
Progress Note Date of Service Apr 03, 2017. Progress Note Patient is postop day 2. Leg symptoms are markedly improved. Back pain controlled. In bleeding well. Urinating without difficulty. Vital signs are stable AMIE drain decreasing appropriate. Assessment status post lumbar depression fusion replant this time will maintain the AMIE drain in the 24 hours anticipate home tomorrow.
[2017-04-03 15:26] VITALS: BP 132/67; PULSE 47; TEMP 36.3; O2SAT 100
--- NOTE | 2017-04-03 19:39 | Progress Note ---
Internal Med Progress Note Date of Service: Apr 03, 2017. Provider Documentation: SUBJECTIVE: resting comfortably no pain afebrile ambulated ok OBJECTIVE: Vital Signs-as noted below Exam: General-alert and oriented. Not in distress ENT-Normal hearing Neck-no neck masses supple Lungs-cta b/l no wheezing no crackles present Heart-s1 and s2 heard regular rate and rhythm no murmurs Abdomen-soft bowel sounds present non tender no distension Extremities- no edema no erythema Musculoskeletal s/p back surgery drain seen Neuro-alert and oriented moves extremities Lab data as noted below. ASSESSMENT & PLAN: S/P L2-4 DECOMPRESSION FUSION - POD#2 management as per ortho. HTN home meds will monitor DM holding Metformin on Lantus / Novolog while hospitalized will monitor Acute blood loss anemia post op hb 8.6 will monitor MYASTHENIA GRAVIS stable on pyridostigmine HYPOTHYROIDISM on levothyroxine HLD on statin GERD on PPI BPH on tamsulosin DVT PROPHYLAXIS as per ortho DISPOSITION as per ortho Vital Signs: Date Time Temp Pulse Resp B/P (MAP) Pulse Ox O2 Delivery O2 Flow Rate FiO2 04/03/17 15:30 Room Air 04/03/17 15:26 36.3 47 16 132/67 (88) 100 Room Air 04/03/17 11:38 36.8 54 16 130/78 (95) 100 Room Air 04/03/17 07:38 100 Room Air 04/03/17 07:37 36.7 52 16 138/84 (102) 100 Room Air 04/03/17 07:30 Room Air 04/03/17 00:02 Room Air 04/02/17 23:20 36.8 58 16 146/65 (92) 92 Room Air Lab Results: Results Past 24 Hours Test 04/02/17 20:51 04/03/17 05:53 04/03/17 08:02 04/03/17 11:57 Range/Units Bedside Glucose 216 139 154 70-99 mg/dl White Blood Count 10.70 4.8-10.8 K/uL Red Blood Count 3.04 4.7-6.1 M/uL Hemoglobin 8.6 14.0-18.0 g/dL Hematocrit 26.9 42-52 % Mean Corpuscular Volume 88.5 80-100 fL Mean Corpuscular Hemoglobin 28.3 25-34 pg Mean Corpuscular Hemoglobin Concent 32.0 32-36 g/dl Platelet Count 142 130-400 K/uL Mean Platelet Volume 9.2 7.4-10.4 fL Neutrophils (%) (Auto) 78.2 % Lymphocytes (%) (Auto) 9.0 % Monocytes (%) (Auto) 11.9 % Eosinophils (%) (Auto) 0.3 % Basophils (%) (Auto) 0.1 % Neutrophils # (Auto) 8.38 1.4-6.5 K/uL Lymphocytes # (Auto) 0.96 1.2-3.4 K/uL Monocytes # (Auto) 1.27 0.11-0.59 K/uL Eosinophils # (Auto) 0.03 0-0.5 K/uL Basophils # (Auto) 0.01 0-0.2 K/uL RDW Standard Deviation 43.1 36.4-46.3 fL RDW Coefficient of Variation 13.3 11.5-14.5 % Immature Granulocyte % (Auto) 0.5 % Immature Granulocyte # (Auto) 0.05 0.00-0.02 K/uL Red Blood Cell Morphology Unremarkable Sodium Level 143 136-145 mmol/L Potassium Level 3.5 3.5-5.1 mmol/L Chloride Level 112 98-107 mmol/L Carbon Dioxide Level 28 21-32 mmol/L Anion Gap 3.0 3-11 mmol/L Blood Urea Nitrogen 15 7-18 mg/dl Creatinine 0.73 0.60-1.40 mg/dl Est Creatinine Clear Calc Drug Dose 84.5 ml/min Estimated GFR () 103.0 Estimated GFR (Non- 88.8 BUN/Creatinine Ratio 21.0 10-20 Random Glucose 130 70-99 mg/dl Calcium Level 8.1 8.5-10.1 mg/dl Magnesium Level 2.1 1.8-2.4 mg/dl Test 04/03/17 17:04 Range/Units Bedside Glucose 132 70-99 mg/dl
[2017-04-03] MEDS: DOCUSATE SODIUM/SENNA 50/8.6MG TAB PO SCH (21:05)
[2017-04-03] MEDS: NADOLOL 40 MG TAB PO SCH (21:06)
[2017-04-03] MEDS: PRAVASTATIN SOD 20 MG TAB PO SCH (21:06)
[2017-04-03] MEDS: INSULIN GLARGINE SOLOSTAR 100 UNITS/ML 3 ML PEN SC SCH (21:18)
[2017-04-03 23:17] VITALS: BP 128/68; PULSE 52; TEMP 37.5; O2SAT 98
[2017-04-04] MEDS: POLYETHYLENE (MIRALAX) 17 GM PACK PO SCH
[2017-04-04] MEDS: PYRIDOSTIGMINE BROMIDE 60 MG TAB PO SCH ×2 (03:09→08:24)
[2017-04-04] MEDS ORDERED: NURSING VERBAL MED ORDER ONE (04:30)
[2017-04-04] MEDS: LEVOTHYROXINE 50 MCG TAB PO SCH (05:46)
[2017-04-04 07:39] VITALS: BP 152/84; PULSE 58; TEMP 36.9; O2SAT 98
[2017-04-04 07:41] VITALS: O2SAT 98
[2017-04-04] MEDS: TOLTERODINE TARTRATE 2 MG TAB PO SCH (08:22)
[2017-04-04] MEDS: ASPIRIN 81 MG ECTAB PO SCH (08:23)
[2017-04-04] MEDS: TAMSULOSIN HCL 0.4 MG CAP PO SCH (08:23)
[2017-04-04] MEDS: PANTOprazole SOD 40 MG TAB PO SCH (08:24)
[2017-04-04] MEDS: ENALAPRIL MALEATE 5 MG TAB PO SCH (08:38)
[2017-04-04] MEDS: INSULIN ASPART 100 UNITS/ML 3 ML PEN SC SCH ×2 (09:30→13:13)
--- NOTE | 2017-04-04 12:29 | Orthopedic Progress Note ---
Orthopedic Progress Note Date of Service Apr 04, 2017. Subjective Post OP Day: 3 Reports: feeling well Additional Notes: Marcel is a 71 lumbar decompression fusion. He is doing well. He is quite pleased. Radicular leg pain has resolved. Back pain is controlled. He has had bowel movements. He is progressing quite well in physical therapy. No other complaints. AMIE drain output last shift was 55 mL. Objective calves soft nontender, N/V intact, dressing C/D/I, A&O x3, toes mobile Patient's alert and oriented 3. He sitting in a chair. No obvious distress. Intact bilateral lower extremities. Calves soft and nontender bilaterally. Lumbar dressing is clean dry and intact. Date Time Temp Pulse Resp B/P (MAP) Pulse Ox O2 Delivery O2 Flow Rate FiO2 04/04/17 08:32 Room Air 04/04/17 07:41 98 Room Air 04/04/17 07:39 36.9 58 16 152/84 (106) 98 Room Air 04/03/17 23:30 Room Air 04/03/17 23:17 37.5 52 16 128/68 (88) 98 Room Air 04/03/17 15:30 Room Air 04/03/17 15:26 36.3 47 16 132/67 (88) 100 Room Air Assessment & Plan Assessment: Patient is doing quite well. We will discharge him home this afternoon. Resections have been reviewed in detail. Plan: Discharge home this afternoon.
--- NOTE | 2017-04-04 12:33 | Discharge Summary ---
Orthopedic Discharge Summary Admission Date/Reason Apr 01, 2017 at 07:30 Lumbar Spinal Stenosis. Discharge Date/Disposition Apr 04, 2017 Home Diagnosis Principal Diagnosis: Lumbar spinal stenosis Procedure(s) Performed Normal limits rotation L4 5. Lumbar decompression L2-3, L3 4. Instrument fusion L2 through 5. [facility] New Medications: Oxycodone HCl (Oxycodone HCl) 5 Mg Tab 5-10 MG PO Q4H PRN for Moderate - severe pain for 30 Days, #60 TAB Continued Medications: Ascorbic Acid (Vitamin C) 500 Mg Cap 500 MG PO QAM Aspirin (Aspirin Ec) 81 Mg Tab 81 MG PO QAM Calcium Carbonate-Vitamin D (Calcium + D) 1 Tab Tab 1 TAB PO BID Enalapril (Vasotec) 5 Mg Tab 10 MG PO BID, TAB Levothyroxine Sodium (Levothyroxine Sodium) 50 Mcg Tab 1 TAB PO QAM for 90 Days, #90 TAB 3 Refills Metformin Hcl (Glucophage) 500 Mg Tab 500 MG PO BID, TAB Multivitamins/Minerals (Mvi With Minerals) Tab 1 TAB PO QPM, TAB Nadolol (Corgard) 80 Mg Tab 80 MG PO HS, TAB Pantoprazole (Protonix) 20 Mg Tab 20 MG PO QAM, #30 TAB Pravastatin (Pravachol ) 20 Mg Tab 40 MG PO QPM, TAB Pyridostigmine [place] ([place]inon) 60 Mg Tab 120 MG PO QID, TAB Tamsulosin Hcl (Flomax) 0.4 Mg Cap 0.4 MG PO NOON, CAP Tolterodine Tartrate (Tolterodine Tartrate) 2 Mg Tab 2 MG PO BID Admission Physical Exam As per Admitting History & Physical. Hospital Course Patient had an uneventful hospital course status post multilevel lumbar decompression fusion. Lab values have been stable. He's progressed well in physical therapy. Pain is controlled. Discharge Instructions Please refer to the electronic Patient Visit Report (Discharge Instructions) for additional information.
[2017-04-04 13:18] VITALS: BP 152/84; PULSE 58; TEMP 36.9; O2SAT 98
--- NOTE | 2017-04-04 14:59 | Discharge Summary ---
Orthopedic Discharge Summary Admission Date/Reason Apr 01, 2017 at 07:30 Lumbar Spinal Stenosis. Discharge Date/Disposition Apr 04, 2017 Home Diagnosis Principal Diagnosis: Lumbar spinal stenosis Admission Physical Exam As per Admitting History & Physical. Hospital Course Patient underwent lumbar decompression fusion tolerated this well was taken to the orthopedic floor postoperatively. Postoperative day #1 he is up in amatory progressed nicely through postop day #2. Postop #3 was discharged home discharge orders and instructions found the chart for further review. Discharge Instructions Please refer to the electronic Patient Visit Report (Discharge Instructions) for additional information.
== END 2017-04-04 15:28 | disposition home health service (06) | DRG 460 ==
LOC: C.ACU 05:19 → C.3E 07:30 → ENRESERV 10:36
PROVIDERS: ADMIT Orthopaedic Surgery Orthopaedic Surgery of the Spine; ATTEND Orthopaedic Surgery Orthopaedic Surgery of the Spine
PROC: 0SG00AJ Fusion of Lumbar Vertebral Joint with Interbody Fusion Device, Posterior Approach, Anterior Column, Open Approach (ICD-10-PCS; principal; 2017-04-01 07:45)
PROC: 0SG1071 Fusion of 2 or more Lumbar Vertebral Joints with Autologous Tissue Substitute, Posterior Approach, Posterior Column, Open Approach (ICD-10-PCS; principal; 2017-04-01 07:45)
PROC: 0ST20ZZ Resection of Lumbar Vertebral Disc, Open Approach (ICD-10-PCS; principal; 2017-04-01 07:45)
PROC: 0SP004Z Removal of Internal Fixation Device from Lumbar Vertebral Joint, Open Approach (ICD-10-PCS; principal; 2017-04-01 07:45)
DX: M48.06 Spinal stenosis, lumbar region (principal); D62 Acute posthemorrhagic anemia; E11.9 Type 2 diabetes mellitus without complications; K21.9 Gastro-esophageal reflux disease without esophagitis; I10 Essential (primary) hypertension; E78.5 Hyperlipidemia, unspecified; E03.9 Hypothyroidism, unspecified; N40.0 Benign prostatic hyperplasia without lower urinary tract symptoms; G70.00 Myasthenia gravis without (acute) exacerbation; Z79.899 Other long term (current) drug therapy; Z79.84 Long term (current) use of oral hypoglycemic drugs; Z79.82 Long term (current) use of aspirin; Z87.891 Personal history of nicotine dependence